=== PATIENT | male | born 1980 | race Hispanic/Latino ===

== ENCOUNTER 2018-05-13 13:51 | Emergency (ER) | payer OTHER ==
[2018-05-13] MEDS: NORCO, ANEXSIA 5/325MG TABLET (HYDROcodone/ACETAMINOPHEN) PO (15:19)
== END 2018-05-13 15:43 | disposition home or self-care (01) ==
LOC: M ED 13:51
DX: S83.411A Sprain of medial collateral ligament of right knee, initial encounter (principal); X50.3XXA Overexertion from repetitive movements, initial encounter; Y92.39 Other specified sports and athletic area as the place of occurrence of the external cause; Y93.B9 Activity, other involving muscle strengthening exercises; Y99.9 Unspecified external cause status
CPT/HCPCS: 73564